=== PATIENT | male | born 1965 | race Caucasian/White ===

== ENCOUNTER 2024-06-17 15:43 | Emergency (ER) | payer BC, SELFPAY ==
[2024-06-17] VITALS (94 sets, daily range): BP systolic 126–164; BP diastolic 64–86; PULSE 40–60; RESP 8–24; TEMP 36; O2SAT 99
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
--- NOTE | 2024-06-17 16:02 | DI.CT_ITS ---
Exam(s) CT HEAD CERV SPINE FACIAL WO EXAM: CT HEAD CERV SPINE FACIAL WO CLINICAL HISTORY: trauma. TECHNIQUE: Imaging Protocol: Axial computed tomography images with coronal and sagittal reformatted images were created and reviewed COMPARISON: CT CT CAROTID NECK CTA from 06/17/2024 FINDINGS: CT Head: Ventricles and Extra axial spaces: Normal in size and morphology for the patient's age. Hemorrhage: None. Cerebral parenchyma: No evidence of acute hemorrhage or acute infarct. Midline shift: None. Brainstem/Cerebellum: Normal. Calvarium: Normal. Visualized Paranasal sinuses/Mastoids: Mucous retention cyst left maxillary sinus. Small air-fluid l evel right maxillary sinus. Soft Tissues: Unremarkable. CT Face: Facial Bones: Nondisplaced nasal fractures. Sinuses and Mastoids: Trace fluid right maxillary sinus. Mucous retention cyst left maxillary sinus . Globes, extraocular muscles, optic nerves and retrobulbar fat: Normal. Upper aerodigestive tract: Normal. Mandible and bilateral temporomandibular joints: Normal. Soft tissues: Normal. CT Cervical Spine: Bones: No acute fracture or subluxation. Degenerative changes. Soft Tissues: Unremarkable. Lung Apices: Clear. IMPRESSION: 1. No acute intracranial process. 2. No acute fracture or subluxation in the cervical spine. 3. Nondisplaced nasal fracture RADIATION DOSE DELIVERED: Total DLP DATA REPOSITORY: All CT scans at this facility are submitted to the National Radiology Data Registry (NRDR) Dose Index Registry (DIR) with the [employer] ([employer]). RADIATION OPTIMIZATION: All CT scans at this facility use at least one of these dose optimization te chniques: automated exposure control; mA and/or kV adjustment per patient size (includes targeted exa ms where dose is matched to clinical indication); or iterative reconstruction.
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
[2024-06-17] MEDS: HYDROmorphone 2 MG/ML SYR 1 MG IVP ×3 (16:08→22:01)
[2024-06-17] MEDS: Normal Saline - Diluent 50 ML VIAL IJ ×2 (16:12→19:16)
[2024-06-17] MEDS: Omnipaque 350 MG/ML 100 ML BTL IJ ×2 (16:13→19:16)
[2024-06-17 16:22] LABS: Abs Immature Grans 0.19 10^3/uL (0.0-0.06); Absolute Basophil Count 0.12 10^3/uL (0.0-0.2); Absolute Eosinophil Count 0.05 10^3/uL (0.0-0.7); Absolute Lymphocyte Count 1.81 10^3/uL (1.2-3.4); Absolute Monocyte Count 0.56 10^3/uL (0.1-0.8); Absolute Neutrophil Count 8.24 10^3/uL (1.2-6.7); Basophils % 1.1 %; Eosinophils % 0.5 %; HCT 44.6 % (40.0-50.0); HGB 15.9 g/dL (13.5-17.5); Immature Grans % 1.7 %; Lymphocytes % 16.5 %; MCH 32.3 pg (27.0-33.0); MCHC 35.7 % (32.0-36.0); MCV 91 fL (80-95); MPV 10.3 fL (8.0-11.0); Monocytes % 5.1 %; Neutrophils % 75.1 %; Platelet Count 295 10^3/uL (130-400); RBC 4.92 10^6/uL (4.36-5.78); RDW 11.9 % (11.8-14.1); RDW-SD 39.4 fL; WBC 10.97 10^3/uL (4.4-10.8)
[2024-06-17 16:56] LABS: ALT 27 U/L (16-63); AST 32 U/L (15-37); Albumin 4.3 g/dL (3.4-5.0); Alkaline Phosphatase 66 U/L (46-116); Anion Gap 12.1 mmol/L (3-11); BUN 14 mg/dL (7-18); Bilirubin, Total 0.71 mg/dL (0.2-1.0); CO2 26.9 mmol/L (21.0-32.0); Calcium 9.8 mg/dL (8.5-10.1); Chloride 103 mmol/L (98-107); Estimated GFR 88.33 (mL/min/1.73m2); Glucose 99 mg/dL (74-106); Magnesium 1.9 mg/dL (1.8-2.4); Potassium 4.3 mmol/L (3.5-5.1); Sodium 142 mmol/L (136-145)
[2024-06-17 17:19] LABS: ETHANOL BLOOD < 3.0 mg/dL (<10)
--- NOTE | 2024-06-17 17:37 | DI.VRAD_ITS ---
PROCEDURE INFORMATION: Exam: CT Head Without Contrast Exam date and time: 06/17/2024 4:20 PM Age: 58 years old Clinical indication: Other: Trauma TECHNIQUE: Imaging protocol: Computed tomography of the head without contrast. COMPARISON: No relevant prior studies available. FINDINGS: Brain: Normal. No hemorrhage. Unremarkable white matter. No mass effect. Cerebral ventricles: No ventriculomegaly. Paranasal sinuses: Left maxillary sinus retention cyst. Trace right maxillary sinus air-fluid level. Mastoid air cells: Visualized mastoid air cells are well aerated. Bones: Unremarkable. No acute fracture. Soft tissues: Unremarkable. IMPRESSION: No evidence for acute intracranial abnormality. PROCEDURE INFORMATION: Exam: CT Maxillofacial Without Contrast Exam date and time: 06/17/2024 4:20 PM Age: 58 years old Clinical indication: Other: Trauma TECHNIQUE: Imaging protocol: Computed tomography of the face without contrast. COMPARISON: No relevant prior studies available. FINDINGS: Orbital cavities: Orbits are normal. Globes are unremarkable. Paranasal sinuses: Left maxillary sinus retention cyst. Trace air-fluid level right maxillary sinus. Bones: No acute fracture. Soft tissues: Unremarkable. IMPRESSION: No evidence for fracture. PROCEDURE INFORMATION: Exam: CT Cervical Spine Without Contrast Exam date and time: 06/17/2024 4:20 PM Age: 58 years old Clinical indication: Other: Trauma TECHNIQUE: Imaging protocol: Computed tomography of the cervical spine without contrast. COMPARISON: No relevant prior studies available. FINDINGS: Bones: No acute fracture. Normal alignment. No significant disc bulge or herniation. No severe spinal canal stenosis. No significant neural foraminal narrowing. Lungs: Lung apices are normal. Soft tissues: Unremarkable. IMPRESSION: No evidence for fracture. Dictated and Authenticated by: Brunilda Guzman MD. Ordering:PIERO Ochoa MD
[2024-06-17] MEDS: HYDROmorphone 2 MG/ML SYR 0.5 MG IVP (17:45)
--- NOTE | 2024-06-17 18:06 | DI.VRAD_ITS ---
PROCEDURE INFORMATION: Exam: CT Thoracic Spine Without Contrast Exam date and time: 06/17/2024 4:24 PM Age: 58 years old Clinical indication: Other: Trauma, t\T\l spine TECHNIQUE: Imaging protocol: Computed tomography of the thoracic spine without contrast. COMPARISON: CT CHEST/ABD/PEL W 06/17/2024 4:24 PM FINDINGS: Bones/joints: There is a moderate compression deformity of the T4 vertebral body with estimated loss of height 40% and associated mild retropulsion estimated at 2 mm. There is minimally fractures of bilateral T3 lamina. Mild compression deformities of the T2, T3 and T5 vertebral bodies with sagging of the upper endplates, with no retropulsion. No spondylolisthesis. Mild subluxation of bilateral T3-T4 facet joints. Soft tissues: Unremarkable. Lungs: Left lower lobe atelectasis. IMPRESSION: 1. Moderate compression fracture of the T4 vertebral body with 2 mm retropulsion. Mild compression fracture of the T2, T3 and T5 vertebral bodies with no significant retropulsion. 2. Fracture of bilateral T3 lamina and mild subluxation bilateral T3-T4 facet joints. 3. No epidural hematoma. PROCEDURE INFORMATION: Exam: CT Lumbar Spine Without Contrast Exam date and time: 06/17/2024 4:24 PM Age: 58 years old Clinical indication: Other: Trauma, t\T\l spine TECHNIQUE: Imaging protocol: Computed tomography of the lumbar spine without contrast. COMPARISON: CT CHEST/ABD/PEL W 06/17/2024 4:24 PM FINDINGS: Bones/joints: Large anterior L3-L4 and L4-L5 osteophytes. No compression deformity. No spondylolisthesis. Mild curvature of the lumbar spine convex to the left. Stomach and bowel: Diverticulosis of the sigmoid colon. Soft tissues: Unremarkable. IMPRESSION: No posttraumatic changes in the lumbar spine. Dictated and Authenticated by: Hari Smith MD. Ordering:PIERO Ochoa MD
--- NOTE | 2024-06-17 18:12 | DI.VRAD_ITS ---
PROCEDURE INFORMATION: Exam: CT Chest With Contrast; Diagnostic Exam date and time: 06/17/2024 4:24 PM Age: 58 years old Clinical indication: Other: Trauma, sternum and mid thoracic tenderness TECHNIQUE: Imaging protocol: Diagnostic computed tomography of the chest with contrast. 3D rendering (Not supervised by radiologist): MIP and/or 3D reconstructed images were created by the technologist. Contrast material: 350; Contrast volume: 100 ml; Contrast route: INTRAVENOUS (IV); COMPARISON: CT THORACIC LUMBAR SPINE REC 06/17/2024 4:24 PM FINDINGS: Lungs: Atelectatic changes in both lower lobes. Pleural spaces: Unremarkable. No pneumothorax. No pleural effusion. Heart: Unremarkable. No cardiomegaly. No pericardial effusion. Lymph nodes: Unremarkable. No enlarged lymph nodes. Vasculature: Unremarkable. No aortic aneurysm. Bones/joints: Moderate compression fracture compression fracture of the T4 vertebral body with 1 mm retropulsion. Mild compression fracture of the T2, T3 and T5 vertebral bodies but no significant retropulsion. Minimally fractures of bilateral lamina of T3 with mild subluxation of bilateral T3-T4 facet joints. Soft tissues: Unremarkable. Other findings: No epidural hematoma. IMPRESSION: 1. No intrathoracic posttraumatic changes. 2. Compression fractures of the T2, T3, T4 and T5 vertebral bodies, most pronounced at T4 with mild retropulsion. PROCEDURE INFORMATION: Exam: CT Abdomen And Pelvis With Contrast Exam date and time: 06/17/2024 4:24 PM Age: 58 years old Clinical indication: Other: Trauma, sternum and mid thoracic tenderness TECHNIQUE: Imaging protocol: Computed tomography of the abdomen and pelvis with contrast. 3D rendering (Not supervised by radiologist): MIP and/or 3D reconstructed images were created by the technologist. Contrast material: 350; Contrast volume: 100 ml; Contrast route: INTRAVENOUS (IV); COMPARISON: CT THORACIC LUMBAR SPINE REC 06/17/2024 4:24 PM FINDINGS: Liver: Normal. No mass. Gallbladder and biliary ducts: Normal. No calcified stones. No ductal dilation. Pancreas: Normal. No ductal dilation. Spleen: Normal. No splenomegaly. Adrenal glands: Normal. No mass. Kidneys and ureters: Normal. No hydronephrosis. Stomach and bowel: There is diverticulosis of the sigmoid colon. Appendix: No evidence of appendicitis. Intraperitoneal space: Unremarkable. No free air. No significant fluid collection. Vasculature: Unremarkable. No abdominal aortic aneurysm. Lymph nodes: Unremarkable. No enlarged lymph nodes. Urinary bladder: Unremarkable as visualized. Reproductive: Unremarkable as visualized. Bones/joints: Mild degenerative of bilateral sacroiliac joints. Mild degenerative disease of bilateral hip joints. Mild curvature of the lumbar spine convex to the left. Large anterior osteophytes at L3-L4 and L4-L5 levels. Soft tissues: Small fat containing umbilical hernia. IMPRESSION: No intra-abdominal posttraumatic changes. Dictated and Authenticated by: Hari Smith MD. Ordering:PIERO Ochoa MD
--- NOTE | 2024-06-17 18:45 | DI.CT_ITS ---
Exam(s) CT CAROTID NECK CTA EXAM: CT CAROTID NECK CTA CLINICAL HISTORY: Trauma. TECHNIQUE: Imaging Protocol: Axial CT angiography was performed with multi-slice acquisition and mu lti-planar and MIP reconstructions. CONTRAST MATERIAL: Intravenous: Omnipaque 350 Contrast volume:100 ml COMPARISON: CT CT HEAD CERV SPINE FACIAL WO from 06/17/2024 FINDINGS: CTA Neck W: Common Carotid: Right: No dissection, occlusion or significant stenosis. Left: No dissection, occlusion or significant stenosis. External Carotid: Right: No dissection, occlusion or significant stenosis. Left: No dissection, occlusion or significant stenosis. Internal Carotid: Right: Minimal plaque proximally. No dissection, occlusion or significant stenosis. Left: Mild plaque proximally. No dissection, occlusion or significant stenosis. Vertebral Artery: Right: No dissection, occlusion or significant stenosis. Left: No dissection, occlusion or significant stenosis. Lung Apices: No acute findings. Bones: No acute abnormality in the cervical spine. Please see separate thoracic spine CT report. De generative changes.. Soft Tissues: Normal. IMPRESSION: CTA neck: Mild plaque at the origins of the internal carotid arteries, without significant stenosis. No evidence of dissection or vascular injury.. RADIATION DOSE DELIVERED: Total DLP DATA REPOSITORY: All CT scans at this facility are submitted to the National Radiology Data Registry (NRDR) Dose Index Registry (DIR) with the [employer] ([employer]). RADIATION OPTIMIZATION: All CT scans at this facility use at least one of these dose optimization te chniques: automated exposure control; mA and/or kV adjustment per patient size (includes targeted exa ms where dose is matched to clinical indication); or iterative reconstruction.
--- NOTE | 2024-06-17 19:37 | DI.VRAD_ITS ---
Addendum created by Brunilda Guzman MD on 06/17/2024 7:42:31 PM EDT: I discussed case findings with PAYTON CHAVEZ 06/17/2024 7:41 PM EDT. Initial report created on 06/17/2024 7:36:40 PM EDT: PROCEDURE INFORMATION: Exam: CTA Neck With Contrast Exam date and time: 06/17/2024 7:03 PM Age: 58 years old Clinical indication: Other: Trauma TECHNIQUE: Imaging protocol: Computed tomographic angiography of the neck with contrast. Exam focused on the cervical segments of the vasculature. 3D rendering (Not supervised by radiologist): MIP and/or 3D reconstructed images were created by the technologist. Contrast material: 350; Contrast volume: 70 ml; Contrast route: INTRAVENOUS (IV); COMPARISON: CT HEAD CERV SPINE FACIAL WO 06/17/2024 4:20 PM FINDINGS: Right common carotid artery: No stenosis. No dissection or occlusion. Right internal carotid artery: Minimal plaque proximal right ICA. Right external carotid artery: No occlusion or stenosis of the origin. Left common carotid artery: No stenosis. No dissection or occlusion. Left internal carotid artery: Minimal plaque proximal left ICA. Left external carotid artery: No occlusion or stenosis of the origin. Right vertebral artery: No stenosis. No dissection or occlusion. Left vertebral artery: No stenosis. No dissection or occlusion. Soft tissues: Normal. No significant soft tissue swelling. Bones/joints: There is a minimal superior endplate compression deformity at the T3 level. There is an associated nondisplaced spinous process fracture at T3. There is an approximate 50% compression fracture at the T4 level with minimal retropulsion. There is a paraspinous hematoma. No central stenosis. There is a superior endplate compression of T5. IMPRESSION: 1. No evidence for stenosis or dissection. 2. Thoracic fractures T3 through T5 with most significant compression deformity at T4. No stenosis. REFERENCES: NASCET CRITERIA. The degree of stenosis in the cervical segment of the internal carotid artery is based on NASCET criteria. Normal is no stenosis. Mild is less than 50% stenosis. Moderate is 50-69% stenosis. Severe is 70% to 99% stenosis. Total occlusion is no detectable patent lumen. Dictated and Authenticated by: Brunilda Guzman MD. Ordering:PIERO Ochoa MD
== END 2024-06-17 22:17 | disposition short-term general hospital (02) ==
PROVIDERS: Emergency Provider Nurse Practitioner Family
DX: S32.030A Wedge compression fracture of third lumbar vertebra, initial encounter for closed fracture (principal); S22.049A Unspecified fracture of fourth thoracic vertebra, initial encounter for closed fracture; S22.059A Unspecified fracture of T5-T6 vertebra, initial encounter for closed fracture; V18.0XXA Pedal cycle driver injured in noncollision transport accident in nontraffic accident, initial encounter
CPT/HCPCS: 70498; 74177; 80053; 96374; 96376; 99291; 70450; 70486; 71260; 72125; 80320; 83735; 85025; J1170; J3490